=== PATIENT | female | born 1990 | race African-American/Black ===

== ENCOUNTER → 2018-07-17 | Outpatient (CLI) | payer OTHER ==
[~2018-07-17] MED LIST: Atarax10 MG PO; BIRTH CONTROL; BUPR100 PO; Bactrim Ds Tab1 EACH PO; CEPH500 PO; CITA20 PO; CLON.5 PO; CYCL10 PO; DESV50 PO; ESCI20 PO; KLONOPIN; LAMO100 PO; MULVITMINE PO; NAPR500 PO; NITR100CA PO; Naprosyn500 MG PO; OMEP20ER PO; OMEP40CA12 PO; ONDA4ODT MM; PARO10 PO; PHENA200 PO; PROBIOTIC1 EAC1 PO; Pepcid40 MG PO; Prednisone50 MG PO; Prilosec20 MG PO; SERT50 PO; SULTRIEL PO
[2018-07-17 12:07] LABS: U Amphetamine Screen Not Detected; U Barbituate Screen Not Detected; U Benzodiazapine Screen Not Detected; U Buprenorphine Screen Not Detected; U Cannabinoids Screen Not Detected; U Cocaine Screen Not Detected; U Methadone Screen Not Detected; U Methamphetamine Screen Not Detected; U Opiates Screen Not Detected; U Oxycodone Screen Not Detected; U Phencyclidine Screen Not Detected; U Propoxyphene Screen Not Detected
== END ==
LOC: LAB 10:16 → LAB SHORT 10:16
PROVIDERS: Nurse Practitioner Family
DX: Z51.81 Encounter for therapeutic drug level monitoring (principal); Z79.899 Other long term (current) drug therapy

== ENCOUNTER → 2019-04-17 | Outpatient (CLI) | payer OTHER ==
[2019-04-20 06:07] LABS: CHLAMYDIA TRACHOMATIS, NAA Negative (Negative); NEISSERIA GONORRHOEAE, NAA Negative (Negative)
== END ==
LOC: LAB SHORT 15:38 → LAB UCHC 15:38
PROVIDERS: Registered Nurse Community Health
DX: Z20.2 Contact with and (suspected) exposure to infections with a predominantly sexual mode of transmission (principal)
CPT/HCPCS: 87491; 87591

== ENCOUNTER → 2020-07-30 | Outpatient (CLI) | payer OTHER ==
[2020-08-03 21:10] LABS: HSV-1 DNA Negative (Negative); HSV-2 DNA Negative (Negative)
== END | disposition home or self-care (01) ==
LOC: LAB SHORT 15:00
PROVIDERS: Nurse Practitioner Family
DX: N94.10 Unspecified dyspareunia (principal); R30.0 Dysuria
CPT/HCPCS: 87070; 87077; 87086; 87186; 87205; 87529

== ENCOUNTER → 2020-08-18 | Outpatient (CLI) | payer OTHER ==
[2020-08-18 19:14] LABS: Appearance, Urine Clear (Clear); Bilirubin, Urine Neg (Neg); Blood, Urine 5+ (Neg); Color, Urine Yellow (P-Yellow); Glucose Qualitative, Urine Neg (Neg); Ketones, Urine 1+ (Neg); Leukocyte Esterase, Urine 2+ (Neg); Nitrite, Urine Pos (Neg); Protein, Urine 2+ (Neg); Urobilinogen, Urine NORM (Normal)
[2020-08-18 19:27] LABS: Bacteria Many /hpf; Red Blood Cells, Urine 50-100 /hpf (0-2); Squamous Epithelial Cells Few /hpf (Few); White Blood Cells, Urine 50-100 /hpf (0-5)
== END | disposition home or self-care (01) ==
LOC: LAB SHORT 17:52
PROVIDERS: Physician Assistant
DX: R30.0 Dysuria (principal)
CPT/HCPCS: 81001

== ENCOUNTER → 2020-11-19 | Outpatient (CLI) | payer OTHER ==
[2020-11-22 04:08] LABS: CHLAMYDIA TRACHOMATIS, NAA Negative (Negative)
[2020-11-23 14:09] LABS: HPV 16 Negative (Negative); HPV 18 Negative (Negative); HPV OTHER HR TYPES Negative (Negative)
== END | disposition home or self-care (01) ==
LOC: LAB 18:33 → LAB SHORT 18:33
PROVIDERS: Family Medicine
DX: Z12.4 Encounter for screening for malignant neoplasm of cervix (principal)
CPT/HCPCS: 87491; 87591; 87624; G0123

== ENCOUNTER → 2021-01-31 | Outpatient (CLI) | payer OTHER ==
[2021-01-31 13:55] LABS: Appearance, Urine Clear (Clear); Bilirubin, Urine Neg (Neg); Blood, Urine Neg (Neg); Color, Urine Yellow (P-Yellow); Glucose Qualitative, Urine Neg (Neg); Ketones, Urine Neg (Neg); Leukocyte Esterase, Urine Neg (Neg); Nitrite, Urine Neg (Neg); Protein, Urine Neg (Neg); Specific Gravity, Urine 1.025 (1.003-1.022); Urobilinogen, Urine NORM (Normal)
== END | disposition home or self-care (01) ==
LOC: LAB SHORT 11:10 → LAB 11:10
PROVIDERS: Family Medicine
DX: N39.0 Urinary tract infection, site not specified (principal)
CPT/HCPCS: 81003; 87086

== ENCOUNTER → 2021-02-04 | Outpatient (CLI) | payer OTHER | END | disposition home or self-care (01) | LOC: LAB SHORT 18:11 → LAB 18:11 | DX: R10.9 Unspecified abdominal pain (principal) | CPT/HCPCS: 87086 ==

== ENCOUNTER 2021-08-27 17:20 | Emergency (ER) | payer OTHER ==
[~2021-08-27] VITALS: Ht 175.3 cm; Wt 74.8 kg
[2021-08-27 17:54] LABS: BASOPHILS ABSOLUTE AUTO 0.02 K/mm3 (0.00-0.23); BASOPHILS PERCENT AUTO 0 % (0-2); EOSINOPHILS ABSOLUTE AUTO 0.02 K/mm3 (0.00-0.68); EOSINOPHILS PERCENT AUTO 0 % (0-6); Hematocrit 41.5 % (33.0-51.0); Hemoglobin 13.8 g/dL (11.5-16.0); IMMATURE GRAN ABSOLUTE AUTO 0.02 K/mm3 (0.00-0.10); IMMATURE GRAN PERCENT AUTO 0 % (0-1); LYMPHOCYTES ABSOLUTE AUTO 2.57 K/mm3 (0.84-5.20); LYMPHOCYTES PERCENT AUTO 38 % (21-46); MONOCYTES ABSOLUTE AUTO 0.52 K/mm3 (0.16-1.47); MONOCYTES PERCENT AUTO 8 % (4-13); Mean Corpuscular HGB 29.3 pg (26.0-34.0); Mean Corpuscular HGB Conc 33.3 g/dL (31.5-36.5); Mean Corpuscular Volume 88 fL (80-100); Mean Platelet Volume 9.3 fL (9.1-12.4); NEUTROPHILS ABSOLUTE AUTO 3.63 K/mm3 (1.96-9.15); NEUTROPHILS PERCENT AUTO 54 % (41-73); Platelet Count 232 K/mm3 (150-400); RDW Coefficient Variation 11.6 % (11.7-14.2); RDW Standard Deviation 37.6 fL (35.1-46.3); Red Blood Cell Count 4.71 M/mm3 (3.80-5.20); White Blood Cell Count 6.78 K/mm3 (4.00-11.30)
[2021-08-27 18:10] LABS: Alanine Aminotransfer (ALT/SGP 30 U/L (12-78); Albumin, Blood 3.8 g/dL (3.4-5.0); Albumin/Globulin Ratio 0.9 (0.8-1.8); Alk Phos 61 U/L (50-136); Anion Gap 9 mmol/L (6-16); Aspartate Aminotrans (AST/SGOT 23 U/L (12-37); Bilirubin, Total 0.2 mg/dL (0.1-1.0); Blood Urea Nitrogen 14 mg/dL (8-24); Bun/Creatinine Ratio 19.3 (12.0-20.0); CO2, Blood 26 mmol/L (21-32); Calcium, Blood 9.4 mg/dL (8.5-10.1); Chloride, Blood 102 mmol/L (98-108); Creatinine, Blood 0.73 mg/dL (0.40-1.00); Globulin, Blood 4.1 g/dL (2.2-4.0); Glomerular Filtration Rate >60 (60-); Glucose, Blood 86 mg/dL (70-99); Potassium, Blood 3.4 mmol/L (3.5-5.5); Sodium, Blood 137 mmol/L (136-145); Total Protein, Blood 7.9 g/dL (6.4-8.2)
== END 2021-08-27 20:55 | disposition home or self-care (01) ==
LOC: ER 17:20
PROVIDERS: Physician Assistant
DX: R07.9 Chest pain, unspecified (principal); F17.200 Nicotine dependence, unspecified, uncomplicated; J45.909 Unspecified asthma, uncomplicated; Z79.52 Long term (current) use of systemic steroids
CPT/HCPCS: 36415; 71045; 80053; 81025; 83690; 84484; 85025; 93005; 93010; 96374; 99284-25; J1885

== ENCOUNTER → 2021-12-23 | Outpatient (CLI) | payer OTHER ==
[2021-12-24 13:46] LABS: Candida species (DNA Probe) Negative (NEGATIVE); G. vaginalis (DNA Probe) Negative (NEGATIVE); T. vaginalis (DNA Probe) Negative (NEGATIVE)
== END | disposition home or self-care (01) ==
LOC: LAB SHORT 17:42 → LAB 17:42
PROVIDERS: Family Medicine
DX: N89.8 Other specified noninflammatory disorders of vagina (principal)
CPT/HCPCS: 87480; 87510; 87660

== ENCOUNTER → 2022-08-14 | Outpatient (CLI) | payer OTHER ==
[2022-08-14 19:33] LABS: BASOPHILS ABSOLUTE AUTO 0.02 K/mm3 (0.00-0.23); BASOPHILS PERCENT AUTO 0 % (0-2); EOSINOPHILS ABSOLUTE AUTO 0.06 K/mm3 (0.00-0.68); EOSINOPHILS PERCENT AUTO 1 % (0-6); Hematocrit 40.6 % (33.0-51.0); Hemoglobin 13.3 g/dL (11.5-16.0); IMMATURE GRAN ABSOLUTE AUTO 0.01 K/mm3 (0.00-0.10); IMMATURE GRAN PERCENT AUTO 0 % (0-1); LYMPHOCYTES ABSOLUTE AUTO 2.15 K/mm3 (0.84-5.20); LYMPHOCYTES PERCENT AUTO 40 % (21-46); MONOCYTES ABSOLUTE AUTO 0.41 K/mm3 (0.16-1.47); MONOCYTES PERCENT AUTO 8 % (4-13); Mean Corpuscular HGB 28.9 pg (26.0-34.0); Mean Corpuscular HGB Conc 32.8 g/dL (31.5-36.5); Mean Corpuscular Volume 88 fL (80-100); Mean Platelet Volume 9.7 fL (9.1-12.4); NEUTROPHILS ABSOLUTE AUTO 2.76 K/mm3 (1.96-9.15); NEUTROPHILS PERCENT AUTO 51 % (41-73); Platelet Count 279 K/mm3 (150-400); RDW Standard Deviation 38.5 fL (35.1-46.3); White Blood Cell Count 5.41 K/mm3 (4.00-11.30)
[2022-08-14 20:13] LABS: Albumin, Blood 3.4 g/dL (3.4-5.0); Albumin/Globulin Ratio 0.8 (0.8-1.8); Bilirubin, Total 0.1 mg/dL (0.1-1.0); Bun/Creatinine Ratio 13.9 (12.0-20.0); Calcium, Blood 9.5 mg/dL (8.5-10.1); Creatinine, Blood 0.79 mg/dL (0.40-1.00); Globulin, Blood 4.3 g/dL (2.2-4.0); Potassium, Blood 3.7 mmol/L (3.5-5.5); Thyroid Stimulating Hormone 1.35 uIU/mL (0.360-4.800); Total Protein, Blood 7.7 g/dL (6.4-8.2)
== END | disposition home or self-care (01) ==
LOC: LAB 18:45 → LAB SHORT 18:45
PROVIDERS: Nurse Practitioner Family
DX: Z13.29 Encounter for screening for other suspected endocrine disorder (principal); E87.6 Hypokalemia; N23 Unspecified renal colic; J02.9 Acute pharyngitis, unspecified
CPT/HCPCS: 80053; 84443; 85025; 87081; 87086

== ENCOUNTER → 2022-12-08 | Outpatient (CLI) | payer OTHER ==
[2022-12-11 13:08] LABS: CHLAMYDIA BY NAA Negative (Negative); GONOCOCCUS BY NAA Negative (Negative); TRICH VAG BY NAA Negative (Negative)
== END ==
LOC: LAB SHORT 15:21 → LAB 15:21
PROVIDERS: Family Medicine
DX: Z11.3 Encounter for screening for infections with a predominantly sexual mode of transmission (principal)
CPT/HCPCS: 87491; 87591; 87661

== ENCOUNTER → 2023-03-22 | Outpatient (CLI) | payer OTHER | END | disposition home or self-care (01) | LOC: LAB 14:19 → LAB SHORT 14:19 | DX: R21 Rash and other nonspecific skin eruption (principal) | CPT/HCPCS: 87070; 87205 ==

== ENCOUNTER → 2023-04-29 | Outpatient (CLI) | payer OTHER ==
[2023-04-30 11:05] LABS: Candida species (DNA Probe) Positive (NEGATIVE); G. vaginalis (DNA Probe) Negative (NEGATIVE); T. vaginalis (DNA Probe) Negative (NEGATIVE)
== END | disposition home or self-care (01) ==
LOC: LAB SHORT 14:24 → LAB 14:24
PROVIDERS: Physician Assistant Medical
DX: N89.8 Other specified noninflammatory disorders of vagina (principal)
CPT/HCPCS: 87480; 87510; 87660

== ENCOUNTER → 2023-05-26 | Outpatient (CLI) | payer OTHER | END | disposition home or self-care (01) | LOC: LAB SHORT 17:13 → LAB 17:13 | DX: L30.9 Dermatitis, unspecified (principal) | CPT/HCPCS: 87070; 87077; 87147; 87186; 87205 ==

== ENCOUNTER → 2023-06-18 | Outpatient (CLI) | payer OTHER ==
[2023-06-18 17:33] LABS: BASOPHILS ABSOLUTE AUTO 0.02 K/mm3 (0.00-0.23); BASOPHILS PERCENT AUTO 0 % (0-2); EOSINOPHILS ABSOLUTE AUTO 0.06 K/mm3 (0.00-0.68); EOSINOPHILS PERCENT AUTO 1 % (0-6); Hematocrit 41.5 % (33.0-51.0); Hemoglobin 13.8 g/dL (11.5-16.0); IMMATURE GRAN ABSOLUTE AUTO 0.01 K/mm3 (0.00-0.10); IMMATURE GRAN PERCENT AUTO 0 % (0-1); LYMPHOCYTES ABSOLUTE AUTO 2.58 K/mm3 (0.84-5.20); LYMPHOCYTES PERCENT AUTO 48 % (21-46); MONOCYTES ABSOLUTE AUTO 0.37 K/mm3 (0.16-1.47); MONOCYTES PERCENT AUTO 7 % (4-13); Mean Corpuscular HGB 29.6 pg (26.0-34.0); Mean Corpuscular HGB Conc 33.3 g/dL (31.5-36.5); Mean Corpuscular Volume 89 fL (80-100); Mean Platelet Volume 9.3 fL (9.1-12.4); NEUTROPHILS ABSOLUTE AUTO 2.35 K/mm3 (1.96-9.15); NEUTROPHILS PERCENT AUTO 44 % (41-73); Platelet Count 262 K/mm3 (150-400); RDW Coefficient Variation 12.5 % (11.7-14.2); RDW Standard Deviation 40.4 fL (35.1-46.3); Red Blood Cell Count 4.66 M/mm3 (3.80-5.20); White Blood Cell Count 5.39 K/mm3 (4.00-11.30)
== END ==
LOC: LAB SHORT 17:29
PROVIDERS: Physician Assistant Medical
DX: L20.9 Atopic dermatitis, unspecified (principal)
CPT/HCPCS: 85025

== ENCOUNTER → 2023-12-05 | Outpatient (CLI) | payer OTHER | LOC: LAB SHORT 14:41 → LAB 14:41 | DX: Z32.02 Encounter for pregnancy test, result negative (principal) | CPT/HCPCS: 84702 ==

== ENCOUNTER 2024-02-29 12:57 | Emergency (ER) | payer OTHER ==
[~2024-02-29] VITALS: Ht 175.3 cm; Wt 74.8 kg
[2024-02-29 13:57] LABS: BASOPHILS ABSOLUTE AUTO 0.03 K/mm3 (0.00-0.23); BASOPHILS PERCENT AUTO 1 % (0-2); EOSINOPHILS ABSOLUTE AUTO 0.08 K/mm3 (0.00-0.68); EOSINOPHILS PERCENT AUTO 1 % (0-6); Hematocrit 43.3 % (33.0-51.0); Hemoglobin 14.6 g/dL (11.5-16.0); IMMATURE GRAN ABSOLUTE AUTO 0.03 K/mm3 (0.00-0.10); IMMATURE GRAN PERCENT AUTO 1 % (0-1); LYMPHOCYTES ABSOLUTE AUTO 1.97 K/mm3 (0.84-5.20); LYMPHOCYTES PERCENT AUTO 32 % (21-46); MONOCYTES ABSOLUTE AUTO 0.47 K/mm3 (0.16-1.47); MONOCYTES PERCENT AUTO 8 % (4-13); Mean Corpuscular HGB 29.9 pg (26.0-34.0); Mean Corpuscular HGB Conc 33.7 g/dL (31.5-36.5); Mean Corpuscular Volume 89 fL (80-100); NEUTROPHILS ABSOLUTE AUTO 3.58 K/mm3 (1.96-9.15); NEUTROPHILS PERCENT AUTO 58 % (41-73); Platelet Count 285 K/mm3 (150-400); RDW Standard Deviation 38.5 fL (35.1-46.3); Red Blood Cell Count 4.89 M/mm3 (3.80-5.20); White Blood Cell Count 6.16 K/mm3 (4.00-11.30)
[2024-02-29 14:01] LABS: Source, Urine Clean Catch
[2024-02-29 14:19] LABS: Albumin, Blood 3.6 g/dL (3.4-5.0); Albumin/Globulin Ratio 0.9 (0.8-1.8); Bilirubin, Total 0.2 mg/dL (0.1-1.0); Bun/Creatinine Ratio 25.2 (12.0-20.0); Calcium, Blood 9.8 mg/dL (8.5-10.1); Creatinine, Blood 0.71 mg/dL (0.40-1.00); Globulin, Blood 4.1 g/dL (2.2-4.0); Potassium, Blood 4.2 mmol/L (3.5-5.5); Total Protein, Blood 7.7 g/dL (6.4-8.2)
[2024-02-29 14:24] LABS: Appearance, Urine Hazy (Clear); Bilirubin, Urine Neg (Neg); Blood, Urine Neg (Neg); Color, Urine Yellow (P-Yellow); Glucose Qualitative, Urine Neg (Neg); Ketones, Urine Neg (Neg); Leukocyte Esterase, Urine Neg (Neg); Nitrite, Urine Neg (Neg); Protein, Urine 1+ (Neg); Specific Gravity, Urine 1.015 (1.003-1.022); Urobilinogen, Urine NORM (Normal)
[2024-02-29 16:59] LABS: Bacteria Few /hpf; Red Blood Cells, Urine 0-2 /hpf (0-2); Squamous Epithelial Cells Few /hpf (Few); White Blood Cells, Urine 0-2 /hpf (0-5)
[2024-02-29 18:40] VITALS: BP 148/97
[2024-02-29] MEDS ORDERED: Lidocaine 2% Viscous Soln 15 ML UDC PO ONE (19:25)
[2024-02-29] MEDS ORDERED: Atropine/Scopalam/Hyoscam/PB 5 ML UDC PO ONE (19:25)
[2024-02-29] MEDS ORDERED: Mag Hydrox/AL Hydrox/Simeth 30 ML UDC PO ONE (19:25)
[2024-02-29] MEDS ORDERED: Ketorolac Tromethamine 30mg Vial IV ONE (19:25)
[2024-02-29] MEDS ORDERED: FAMO20 PO (20:54)
== END 2024-02-29 21:30 | disposition home or self-care (01) ==
LOC: ER 12:57
PROVIDERS: Physician Assistant
DX: N28.1 Cyst of kidney, acquired (principal); Z88.2 Allergy status to sulfonamides; Z88.1 Allergy status to other antibiotic agents; Z79.899 Other long term (current) drug therapy; Z79.52 Long term (current) use of systemic steroids; F17.210 Nicotine dependence, cigarettes, uncomplicated
CPT/HCPCS: 74177; 80053; 81001; 83690; 84703; 85025; 96374; 99284-25; A9270; J1885; Q9967

== ENCOUNTER 2024-05-01 12:24 | Day surgery (SDC) | payer OTHER ==
[~2024-05-01] VITALS: Ht 175.3 cm; Wt 76.1 kg
[~2024-05-01 12:24] MED LIST changes: +FAMO20 PO; +Lactated Ringer's 1,000 ML IV ONE; +Lactated Ringer's 1,000 ML ONE; +propofoL 50 ML IV ONE
[2024-05-01] MEDS ORDERED: Lactated Ringer's 1,000 ML IV ONE (12:55)
[2024-05-01] MEDS ORDERED: ALPR.5 PO (13:22)
[2024-05-01] MEDS ORDERED: BRINTELLIX20 MG PO (13:22)
[2024-05-01 14:45] VITALS: BP 110/70
--- NOTE | 2024-05-01 16:16 | NUR ---
05/01/24 1616 Tanner Mcdaniel PT CALLED FOLLOWING D/C AND RPORTED CP, PAIN OVER LEFT SHOULDER, AND FEELING OF INCREASED HEART RATE. DR. PHILIP WAS CONSULTED, AND PT WAS INSTRUCTED TO GO TO EMERGENCY DEPARTMENT IMMEDIATELY, PER DR. PHILIP'S ORDERS.
== END 2024-05-01 14:44 | disposition home or self-care (01) ==
LOC: ORSCSDS 12:24
PROVIDERS: Internal Medicine Gastroenterology
PROC: 0DBE8ZX Excision of Large Intestine, Via Natural or Artificial Opening Endoscopic, Diagnostic (ICD-10-PCS; principal; 2024-05-01 13:45)
PROC: 0DJ08ZZ Inspection of Upper Intestinal Tract, Via Natural or Artificial Opening Endoscopic (ICD-10-PCS; principal; 2024-05-01 13:45)
DX: R19.7 Diarrhea, unspecified (principal); R10.84 Generalized abdominal pain; R14.0 Abdominal distension (gaseous); F40.01 Agoraphobia with panic disorder; F32.A Depression, unspecified; Z79.899 Other long term (current) drug therapy; Z87.891 Personal history of nicotine dependence
CPT/HCPCS: 88305; J2704; J7120

== ENCOUNTER → 2024-07-03 | Outpatient (CLI) | payer OTHER ==
[~2024-07-03] MED LIST changes: +ALPR.5 PO; +BRINTELLIX20 MG PO; -Lactated Ringer's 1,000 ML IV ONE; -Lactated Ringer's 1,000 ML ONE; -propofoL 50 ML IV ONE
[2024-07-03 21:02] LABS: Parainfluenza Virus 2 Detected (NOT DETECT)
[2024-07-03 21:03] LABS: Adenovirus Not Detected (NOT DETECT); Bordetella pertussis Not Detected (NOT DETECT); Chlamydophila pneumoniae Not Detected (NOT DETECT); Coronavirus 229E Not Detected (NOT DETECT); Coronavirus HKU1 Not Detected (NOT DETECT); Coronavirus NL63 Not Detected (NOT DETECT); Coronavirus OC43 Not Detected (NOT DETECT); Human Metapneumovirus Not Detected (NOT DETECT); Human Rhinovirus/Enterovirus Not Detected (NOT DETECT); Influenza A/2009-H1 Not Detected (NOT DETECT); Influenza A/H1 Not Detected (NOT DETECT); Influenza A/H3 Not Detected (NOT DETECT); Influenza B Not Detected (NOT DETECT); Mycoplasma pneumoniae Not Detected (NOT DETECT); Parainfluenza Virus 1 Not Detected (NOT DETECT); Parainfluenza Virus 3 Not Detected (NOT DETECT); Parainfluenza Virus 4 Not Detected (NOT DETECT); Respiratory Syncytial Virus Not Detected (NOT DETECT); SARS-Cov-2 (COVID-19), BioFire Not Detected (NOT DETECT)
== END ==
LOC: LAB SHORT 18:36 → LAB 18:36
PROVIDERS: Student in an Organized Health Care Education/Training Program
DX: J02.9 Acute pharyngitis, unspecified (principal); J06.9 Acute upper respiratory infection, unspecified
CPT/HCPCS: 0202U; 87081

== ENCOUNTER 2025-03-02 19:33 | Emergency (ER) | payer OTHER ==
[~2025-03-02] VITALS: Ht 175.3 cm; Wt 81.7 kg
[2025-03-02 21:30] VITALS: BP 144/95
== END 2025-03-02 21:52 | disposition home or self-care (01) ==
LOC: ER 19:33
DX: R53.1 Weakness (principal); F17.210 Nicotine dependence, cigarettes, uncomplicated; Z88.2 Allergy status to sulfonamides; Z88.1 Allergy status to other antibiotic agents; Z79.899 Other long term (current) drug therapy
CPT/HCPCS: 51798; 70450; 99284-25

== ENCOUNTER 2025-03-06 06:07 | Day surgery (SDC) | payer OTHER ==
[~2025-03-06] VITALS: Ht 175.3 cm; Wt 83.4 kg
[2025-03-06] MEDS ORDERED: Bupivacaine 0.5% W/EPI 1:200000 SDV 30 ML Vial ONE (06:54)
--- NOTE | 2025-03-06 07:08 | NUR ---
03/06/25 0742 MICAELA Cárdenas CHECK ON RT HAND @ 0352
[2025-03-06] MEDS ORDERED: FentaNYL Citrate 50 MCG/ML 2 ML Injection ONE ×2 (07:24→08:50)
[2025-03-06] MEDS ORDERED: Rocuronium Bromide 10 MG/ML 5ML Injection IV ONE (07:37)
[2025-03-06] MEDS ORDERED: Dexamethasone Sod Phos 10 MG/ML 1ML VIAL ONE (07:37)
[2025-03-06] MEDS ORDERED: Sugammadex Sodium 200 MG/2ML SDV (100 MG/ML) ONE (08:13)
[2025-03-06] MEDS ORDERED: Ondansetron HCl 2 MG / ML 2ML Vial ONE (08:13)
--- NOTE | 2025-03-06 08:18 | NUR ---
03/06/25 [address] LOT: [id number] exp:06/2029
--- NOTE | 2025-03-06 09:16 | NUR ---
03/06/25 0916 Rocio Yeung RN ASSISTED PT TO RECLINER. VSS.
[2025-03-06] MEDS ORDERED: Ketorolac Tromethamine 30mg Vial ONE (09:17)
[2025-03-06 09:55] VITALS: BP 128/80
== END 2025-03-06 10:18 | disposition home or self-care (01) ==
LOC: ORSCSDS 06:07
PROVIDERS: Obstetrics & Gynecology
PROC: 0UDB7ZX Extraction of Endometrium, Via Natural or Artificial Opening, Diagnostic (ICD-10-PCS; principal; 2025-03-06 07:30)
PROC: 0UJH4ZZ Inspection of Vagina and Cul-de-sac, Percutaneous Endoscopic Approach (ICD-10-PCS; principal; 2025-03-06 07:30)
PROC: 0UH97HZ Insertion of Contraceptive Device into Uterus, Via Natural or Artificial Opening (ICD-10-PCS; principal; 2025-03-06 07:30)
DX: N94.6 Dysmenorrhea, unspecified (principal); N93.9 Abnormal uterine and vaginal bleeding, unspecified; Z30.430 Encounter for insertion of intrauterine contraceptive device; J45.909 Unspecified asthma, uncomplicated; Q05.9 Spina bifida, unspecified; Z79.899 Other long term (current) drug therapy
CPT/HCPCS: 88305; A9270; J1100; J1885; J2405; J2704; J3010; J7120; J7297

== ENCOUNTER → 2025-03-13 | Outpatient (CLI) | payer OTHER ==
[2025-03-13 14:11] LABS: Source, Urine Voided
[2025-03-13 14:35] LABS: Bilirubin, Urine Neg (Neg); Color, Urine Yellow (P-Yellow); Glucose Qualitative, Urine Neg (Neg); Ketones, Urine Neg (Neg); Leukocyte Esterase, Urine 1+ (Neg); Protein, Urine Neg (Neg); Specific Gravity, Urine 1.015 (1.003-1.022); Urobilinogen, Urine NORM (Normal)
[2025-03-13 15:30] LABS: Bacterial Vaginosis PCR Negative (NEGATIVE); Candida Group, PCR NOT DETECTED (NOT DETECT); Candida glabrata-krusei, PCR NOT DETECTED (NOT DETECT)
[2025-03-13 16:03] LABS: Chlamydia Trachomatis Vaginal NOT DETECTED (NOT DETECT); Neisseria Gonorrhoea Vaginal NOT DETECTED (NOT DETECT)
== END ==
LOC: LAB 12:40 → LAB SHORT 12:40
PROVIDERS: Obstetrics & Gynecology
DX: N73.9 Female pelvic inflammatory disease, unspecified (principal); N89.8 Other specified noninflammatory disorders of vagina; R30.0 Dysuria
CPT/HCPCS: 81001; 81515; 87086; 87491; 87591

== ENCOUNTER 2025-03-26 09:38 | Emergency (ER) | payer OTHER ==
[~2025-03-26] VITALS: Ht 175.3 cm; Wt 81.7 kg
[2025-03-26] MEDS ORDERED: Ondansetron HCl 2 MG / ML 2ML Vial IV ONE ×2 (10:30→12:35)
[2025-03-26 11:08] LABS: Source, Urine Clean Catch
[2025-03-26 11:19] LABS: BASOPHILS ABSOLUTE AUTO 0.01 K/mm3 (0.00-0.23); BASOPHILS PERCENT AUTO 0 % (0-2); EOSINOPHILS ABSOLUTE AUTO 0.06 K/mm3 (0.00-0.68); EOSINOPHILS PERCENT AUTO 1 % (0-6); Hematocrit 39.2 % (33.0-51.0); Hemoglobin 12.6 g/dL (11.5-16.0); IMMATURE GRAN ABSOLUTE AUTO 0.02 K/mm3 (0.00-0.10); IMMATURE GRAN PERCENT AUTO 0 % (0-1); LYMPHOCYTES ABSOLUTE AUTO 1.62 K/mm3 (0.84-5.20); LYMPHOCYTES PERCENT AUTO 32 % (21-46); MONOCYTES ABSOLUTE AUTO 0.52 K/mm3 (0.16-1.47); MONOCYTES PERCENT AUTO 10 % (4-13); Mean Corpuscular HGB Conc 32.1 g/dL (31.5-36.5); Mean Corpuscular Volume 91 fL (80-100); NEUTROPHILS ABSOLUTE AUTO 2.78 K/mm3 (1.96-9.15); NEUTROPHILS PERCENT AUTO 56 % (41-73); NRBC ABSOLUTE 0.00 K/mm3 (0.00-0.02); NRBC Auto 0.0 /100 WBC (0.0-0.2); Platelet Count 262 K/mm3 (150-400); RDW Coefficient Variation 12.3 % (11.7-14.2); RDW Standard Deviation 40.6 fL (35.1-46.3)
[2025-03-26 11:20] LABS: Bilirubin, Urine Neg (Neg); Color, Urine Yellow (P-Yellow); Glucose Qualitative, Urine Neg (Neg); Ketones, Urine Neg (Neg); Leukocyte Esterase, Urine 1+ (Neg); Protein, Urine 2+ (Neg); Specific Gravity, Urine 1.025 (1.003-1.022); Urobilinogen, Urine NORM (Normal)
[2025-03-26 11:30] LABS: Red Blood Cells, Urine Not Seen /hpf (0-2)
[2025-03-26 11:43] LABS: Alanine Aminotransfer (ALT/SGP 63.0 U/L (12-78); Albumin, Blood 3.8 g/dL (3.4-5.0); Albumin/Globulin Ratio 1.2 (0.8-1.8); Anion Gap 6.0 mmol/L (3-11); Aspartate Aminotrans (AST/SGOT 44.0 U/L (12-37); Bilirubin, Total 0.1 mg/dL (0.1-1.0); Blood Urea Nitrogen 10.0 mg/dL (8-24); CO2, Blood 27.0 mmol/L (21-32); Calcium, Blood 8.7 mg/dL (8.5-10.1); Chloride, Blood 109.0 mmol/L (98-108); Creatinine, Blood 0.79 mg/dL (0.40-1.00); Globulin, Blood 3.1 g/dL (2.2-4.0); Glucose, Blood 75.0 mg/dL (70-99); Potassium, Blood 3.6 mmol/L (3.5-5.5); Sodium, Blood 138.0 mmol/L (136-145); Total Protein, Blood 6.9 g/dL (6.4-8.2)
[2025-03-26] MEDS ORDERED: NS 1,000 ML IV SCH (12:35)
[2025-03-26] MEDS ORDERED: FentaNYL Citrate 50 MCG/ML 2 ML Injection IV ONE (12:35)
[2025-03-26] MEDS ORDERED: DiphenhydrAMINE HCl 50 MG/ML 1ML Vial IV ONE (12:35)
[2025-03-26] MEDS ORDERED: CEPH500 PO (15:00)
[2025-03-26] MEDS ORDERED: Ketorolac Tromethamine 15mg Vial IV ONE (15:40)
[2025-03-26] MEDS ORDERED: ACET500 PO (15:55)
[2025-03-26 16:17] VITALS: BP 129/90
[2025-03-26 17:16] LABS: Bacterial Vaginosis PCR Negative (NEGATIVE); Candida Group, PCR NOT DETECTED (NOT DETECT); Candida glabrata-krusei, PCR NOT DETECTED (NOT DETECT)
[2025-03-26 17:48] LABS: Chlamydia Trachomatis Cervix NOT DETECTED (NOT DETECT); Neisseria Gonorrhoea Cervix NOT DETECTED (NOT DETECT)
== END 2025-03-26 16:31 | disposition home or self-care (01) ==
LOC: ER 09:38
PROVIDERS: Physician Assistant; Student in an Organized Health Care Education/Training Program
DX: R10.11 Right upper quadrant pain (principal); R10.12 Left upper quadrant pain; R10.20 Pelvic and perineal pain unspecified side; Z88.2 Allergy status to sulfonamides; Z91.018 Allergy to other foods; Z88.8 Allergy status to other drugs, medicaments and biological substances; F17.210 Nicotine dependence, cigarettes, uncomplicated
CPT/HCPCS: 74177; 80053; 81001; 81025; 81515; 83690; 85025; 87077; 87086; 87186; 87491; 87591; 96374-59; 96375; 96376; 99284-25; A9270; J1200; J1885; J2405; J2919; J3010; J7030; Q9967

== ENCOUNTER 2025-03-31 13:16 | Inpatient (IN) | payer OTHER ==
[~2025-03-31] VITALS: Ht 175.3 cm; Wt 81.5 kg
[~2025-03-31 13:16] MED LIST changes: +ACET500 PO
[2025-03-31 13:28] VITALS: BP 131/94
[2025-03-31] MEDS ORDERED: OMEP20ER PO (14:00)
[2025-03-31] MEDS ORDERED: FEROSUL325 M1 PO (14:02)
[2025-03-31] MEDS ORDERED: MULVITA PO (14:03)
[2025-03-31] MEDS ORDERED: Vitamin D1000 UNI1 PO (14:04)
[2025-03-31] MEDS ORDERED: MAGNESIUM OXID500 MG PO (14:04)
[2025-03-31] MEDS ORDERED: FLU VACC TS2025-26(6MOS UP)/PF 45 MCG/0.5 ML SYRINGE IM SCH (14:55)
[2025-03-31] MEDS ORDERED: Morphine Sulfate 4 MG/1 ML Injection IV PRN (14:55)
[2025-03-31] MEDS ORDERED: Ondansetron HCl 2 MG / ML 2ML Vial IV PRN (14:55)
[2025-03-31 15:24] LABS: BASOPHILS ABSOLUTE AUTO 0.01 K/mm3 (0.00-0.23); BASOPHILS PERCENT AUTO 0 % (0-2); EOSINOPHILS ABSOLUTE AUTO 0.09 K/mm3 (0.00-0.68); EOSINOPHILS PERCENT AUTO 2 % (0-6); Hematocrit 41.0 % (33.0-51.0); Hemoglobin 13.3 g/dL (11.5-16.0); IMMATURE GRAN ABSOLUTE AUTO 0.02 K/mm3 (0.00-0.10); IMMATURE GRAN PERCENT AUTO 0 % (0-1); LYMPHOCYTES ABSOLUTE AUTO 2.10 K/mm3 (0.84-5.20); LYMPHOCYTES PERCENT AUTO 37 % (21-46); MONOCYTES ABSOLUTE AUTO 0.43 K/mm3 (0.16-1.47); MONOCYTES PERCENT AUTO 8 % (4-13); Mean Corpuscular HGB Conc 32.4 g/dL (31.5-36.5); Mean Corpuscular Volume 90 fL (80-100); NEUTROPHILS ABSOLUTE AUTO 3.03 K/mm3 (1.96-9.15); NEUTROPHILS PERCENT AUTO 53 % (41-73); NRBC ABSOLUTE 0.00 K/mm3 (0.00-0.02); NRBC Auto 0.0 /100 WBC (0.0-0.2); Platelet Count 280 K/mm3 (150-400); RDW Coefficient Variation 12.6 % (11.7-14.2); RDW Standard Deviation 41.0 fL (35.1-46.3)
[2025-03-31 15:34] VITALS: BP 119/91
[2025-03-31 15:48] LABS: Alanine Aminotransfer (ALT/SGP 81.0 U/L (12-78); Albumin, Blood 3.7 g/dL (3.4-5.0); Albumin/Globulin Ratio 1.1 (0.8-1.8); Anion Gap 6.0 mmol/L (3-11); Aspartate Aminotrans (AST/SGOT 36.0 U/L (12-37); Bilirubin, Total 0.1 mg/dL (0.1-1.0); Blood Urea Nitrogen 13.0 mg/dL (8-24); CO2, Blood 29.0 mmol/L (21-32); Calcium, Blood 9.2 mg/dL (8.5-10.1); Chloride, Blood 105.0 mmol/L (98-108); Creatinine, Blood 0.7 mg/dL (0.40-1.00); Globulin, Blood 3.4 g/dL (2.2-4.0); Glucose, Blood 109.0 mg/dL (70-99); Potassium, Blood 4.5 mmol/L (3.5-5.5); Sodium, Blood 135.0 mmol/L (136-145); Total Protein, Blood 7.1 g/dL (6.4-8.2)
[2025-03-31 16:01] LABS: Source, Urine Clean Catch
[2025-03-31 16:17] LABS: Bilirubin, Urine Neg (Neg); Color, Urine Yellow (P-Yellow); Glucose Qualitative, Urine Neg (Neg); Ketones, Urine Neg (Neg); Leukocyte Esterase, Urine Neg (Neg); Protein, Urine Neg (Neg); Specific Gravity, Urine 1.010 (1.003-1.022); Urobilinogen, Urine NORM (Normal)
[2025-03-31] MEDS ORDERED: Vancomycin (Pharmacy Consult) IV SCH (17:15)
[2025-03-31] MEDS ORDERED: NS 250 ML IV PRN (18:05)
--- NOTE | 2025-03-31 19:14 | NUR ---
ADMIT NOTE DIRECT ADMIT FROM DR. CRUM'S OFFICE. HOSPITALIST DR. WEBBER WAS NOTIFIED OF ARRIVAL. ADMISSION PROCESS COMPLETED. MED REC COMPLETED. IV ACCES ESTABLISHED TO LEFT FOREARM. URINALYSIS COLLECTED. IV ANTIBIOTICS STARTED THIS EVENING. PRN IV MORPHINE 1 MG ADMINSITERED X1 AND ORAL OXY 5MG ADMINISTERED X1 WITH REPORTED RELIEF. PRN ZOFRAN ADMINISTERED FOR NAUSEA BUT NO VOMITING THIS SHIFT. PT REPORTS PAIN TO BACK/ABD/EPIGASTRIC AREA AND VAGINA. ALL CONSTANT SHARP SHOOTING PAIN. PT REPORTS OCCASIONAL ABNORMAL DISCHARGE FROM VAGINA BUT NONE NOTED AT THIS TIME. MONITORING URINARY OUTPUT. A/OX4. ROOM AIR. INDEPENDENT IN ROOM. STEADY GAIT. ABLE TO MAKE NEEDS KNOWN AND EDUCATED ON APPROPRIATE CALL KEE USAGE.
[2025-03-31 20:09] VITALS: BP 114/62
[2025-03-31] MEDS ORDERED: Camila0.35 MG PO (20:25)
--- NOTE | 2025-03-31 20:43 | NUR ---
NOTIFIED PROVIDER: PROVIDER CALLED ABOUT RESTARTING BENEDRYL, CONTROL AND TRINTELLIX. PROVIDER ORDERED ALL ABOVE MEDICATIONS BUT THE CONTROL. PROVIDER STATED TO HOLD CONTROL TONIGHT AND TO ASK MORNING PROVIDER ABOUT RESTARTING IT.
[2025-03-31] MEDS ORDERED: VORTIOXETINE HYDROBROMIDE 20 MG TABLET PO SCH (21:00)
--- NOTE | 2025-04-01 00:58 | NUR ---
PT REPORTS, WHEN SHE IS JUST ABOUT ASLEEP SHE IS WOKE BY A FEELING IN HER HEART. REPORTS IT FEELS LIKE HER HEART IS STOPPING. WHEN SHE DOES WAKE, HR FEELS TACHY FOR A SHORT MOMENT AND THEN RETURNS TO NORMAL. PT IS ON VANCO. CALLED PHARMACY, THIS IS NOT A COMMON ADVERSE REACTION TO VANCO. NO OTHER CONCERNING SYMPTOMS AT THIS TIME. CALL TO HOSPITALIST, WILL PLACE PT ON TELE FOR FURTHER MONITORING.
[2025-04-01 05:05] VITALS: BP 119/80
[2025-04-01 06:14] LABS: BASOPHILS ABSOLUTE AUTO 0.01 K/mm3 (0.00-0.23); BASOPHILS PERCENT AUTO 0 % (0-2); EOSINOPHILS ABSOLUTE AUTO 0.13 K/mm3 (0.00-0.68); EOSINOPHILS PERCENT AUTO 2 % (0-6); Hematocrit 39.6 % (33.0-51.0); Hemoglobin 12.8 g/dL (11.5-16.0); IMMATURE GRAN ABSOLUTE AUTO 0.02 K/mm3 (0.00-0.10); IMMATURE GRAN PERCENT AUTO 0 % (0-1); LYMPHOCYTES ABSOLUTE AUTO 2.55 K/mm3 (0.84-5.20); LYMPHOCYTES PERCENT AUTO 43 % (21-46); MONOCYTES ABSOLUTE AUTO 0.48 K/mm3 (0.16-1.47); MONOCYTES PERCENT AUTO 8 % (4-13); Mean Corpuscular HGB Conc 32.3 g/dL (31.5-36.5); Mean Corpuscular Volume 90 fL (80-100); NEUTROPHILS ABSOLUTE AUTO 2.73 K/mm3 (1.96-9.15); NEUTROPHILS PERCENT AUTO 46 % (41-73); NRBC ABSOLUTE 0.00 K/mm3 (0.00-0.02); NRBC Auto 0.0 /100 WBC (0.0-0.2); Platelet Count 259 K/mm3 (150-400); RDW Coefficient Variation 12.5 % (11.7-14.2); RDW Standard Deviation 41.2 fL (35.1-46.3)
[2025-04-01 06:43] LABS: Alanine Aminotransfer (ALT/SGP 65.0 U/L (12-78); Albumin, Blood 3.3 g/dL (3.4-5.0); Albumin/Globulin Ratio 1.0 (0.8-1.8); Anion Gap 6.0 mmol/L (3-11); Aspartate Aminotrans (AST/SGOT 35.0 U/L (12-37); Bilirubin, Total 0.4 mg/dL (0.1-1.0); Blood Urea Nitrogen 13.0 mg/dL (8-24); CO2, Blood 29.0 mmol/L (21-32); Calcium, Blood 8.7 mg/dL (8.5-10.1); Chloride, Blood 104.0 mmol/L (98-108); Creatinine, Blood 0.78 mg/dL (0.40-1.00); Globulin, Blood 3.3 g/dL (2.2-4.0); Glucose, Blood 88.0 mg/dL (70-99); Potassium, Blood 4.0 mmol/L (3.5-5.5); Sodium, Blood 135.0 mmol/L (136-145); Total Protein, Blood 6.6 g/dL (6.4-8.2)
[2025-04-01 07:55] VITALS: BP 119/75
[2025-04-01] MEDS ORDERED: Cholecalciferol 1000 Unit Tablet (=25MCG) PO SCH (09:00)
[2025-04-01] MEDS ORDERED: Multivitamins 1 Tab PO SCH (09:00)
[2025-04-01] MEDS ORDERED: Enoxaparin 40 MG/0.4 ML SYR SC SCH (09:00)
[2025-04-01 12:00] VITALS: BP 123/91
[2025-04-01] MEDS ORDERED: CefTRIAXone Sodium 1,000 MG in NS 100 ML IV SCH (14:00)
[2025-04-01 14:46] LABS: Source, Urine Clean Catch
[2025-04-01 14:52] LABS: Bilirubin, Urine Neg (Neg); Color, Urine Yellow (P-Yellow); Glucose Qualitative, Urine Neg (Neg); Ketones, Urine Neg (Neg); Leukocyte Esterase, Urine 1+ (Neg); Protein, Urine 1+ (Neg); Specific Gravity, Urine 1.025 (1.003-1.022); Urobilinogen, Urine NORM (Normal)
[2025-04-01 15:10] LABS: Red Blood Cells, Urine 0-2 /hpf (0-2); White Blood Cells, Urine 0-2 /hpf (0-5)
[2025-04-01 16:13] VITALS: BP 135/86
--- NOTE | 2025-04-01 18:00 | NUR ---
SHIFT SUMMARY PATIENT ALERT AND INTERACTIVE. PATIENT INDEPENDENT IN THE ROOM. PATIENT VERBALIZES DIZZINESS AND WEAKNESS AT TIMES. PATIENT NOTED TO HAVE SLIGHT "HEADBOBBING" WHILE SITTING AT BEDSIDE. PATIENT VERBALIZING A LOT OF ANXIETY RELATED TO ANTIBIOTICS AND DISCOMFORT WITH IV SITES. PROVIDED ACTIVE LISTENING AND SUPPORT TO PATIENT. NO DISCOMFORT REPORTED DURING INFUSIONS TODAY. [facility]A SENT FOR CULTURE. CONTINUE TO MEDICATE FOR PAIN. HEATING PAD PROVIDED FOR COMFORT.
[2025-04-01 19:37] VITALS: BP 127/83
[2025-04-01] MEDS ORDERED: Metoclopramide HCl 5MG / ML 2ML Vial IV PRN (21:20)
[2025-04-01 23:20] VITALS: BP 130/88
--- NOTE | 2025-04-02 03:14 | NUR ---
SHIFT SUMMARY PT IS ALERT AND ORIENTED. ABLE TO MAKE NEEDS KNOWN. PLEASANT AND COOPERATIVE WITH CARES. PT CONTINUES TO VERBALIZE FEELING "FUNNY" AT TIMES, MORE SO AFTER RECEIVING VANCOMYCIN IV. HOME CONTROL HAS BEEN RESTARTED. MEDICATION IS IN LOCKED CUPBOARD. MALE FRIEND AND SUPPORT DOG AT BEDSIDE ALL NIGHT. PT SEEMED LESS ANXIOUS WITH HER COMPANY. SHE DID RECEIVE 1 DOSE OF XANAX. LAC PIV PATENT AND FLUSHING WELL WITHOUT DISCOMFORT. MEDICATED FOR PAIN PER MAR. USING HEATING PAD INTERMITTENTLY. ON TELE, RUNNING SINUS SHYTHM, HR IN THE LOW 80'S. VSS. DIXIE IN LOWEST POSITION. CALL LIGHT IN REACH.
[2025-04-02 05:00] VITALS: BP 102/62
[2025-04-02 06:00] LABS: Vancomycin, Trough 13.4 ug/mL (5.0-10.0)
[2025-04-02 09:05] VITALS: BP 115/71
[2025-04-02 15:04] VITALS: BP 132/80
--- NOTE | 2025-04-02 18:26 | NUR ---
SHIFT SUMMARY PATIENT ALERT AND INTERACTIVE. PATIENT ANXIOUS AT TIMES. PATIENT TRANSITIONED TO DR GORDON TODAY BECAUSE OF SOME CONFUSION WITH PCP. PLAN TO CONTINUE ANTIBIOTICS UNTIL CULTURE RESULTS FROM [facility]. PATIENT INDEPENDENT IN ROOM AND AMBULATING IN HALLS. PATIENT CONTINUES TO BE EASILY ANXIOUS BUT COOPERATIVE WITH CARE.
[2025-04-02 19:44] VITALS: BP 134/73
[2025-04-02] MEDS ORDERED: Ondansetron 4 MG SoluTab MM PRN (21:15)
--- NOTE | 2025-04-02 21:19 | NUR ---
CALLED HOSPITALIST PATIENT REQUESTS PO DISSOLVEABLE ZOFRAN. PATIENT HAS ANXIETY ABOUT IV MEDS. NEW ORDER IN EMAR.
[2025-04-03 04:16] VITALS: BP 123/88
--- NOTE | 2025-04-03 04:27 | NUR ---
END OF SHIFT SUMMARY: AxOX4. ADMITTED FOR UTI. FULL CODE. REGULAR DIET. PATIENT IS ABLE TO MAKE NEEDS KNOWN. PATIENT CAN ADVOCATE FOR NEEDS. PATIENT IS INDEPENDENT IN THE ROOM. CONTINENT OF BOWEL AND BLADDER. TAKES MEDS WHOLE WITH FLUIDS. PATIENT HAD SOME PAIN AND NAUSEA TONIGHT AND WAS MEDICATED PER E-MAR. PATIENT GIVEN IV ANTIBIOTICS. PATIENT HAS ANXIETY. BED IN LOWEST POSITION. CALL LIGHT WITHIN REACH AND PATIENT HAS BEEN EDUCATED ON HOW TO USE. REPORT TO ONCOMING NURSE.
[2025-04-03 07:38] VITALS: BP 116/79
[2025-04-03 12:32] VITALS: BP 150/88
[2025-04-03 15:40] VITALS: BP 134/90
--- NOTE | 2025-04-03 17:53 | NUR ---
SHIFT SUMMARY PT A&OX4. PT ADMITTED DUE TO PYELONEPHRITIS, HX OF ANXIETY. PT INDEPENDENT IN ROOM, PT REPORTS NO SOB NO CHEST PAIN. PT REPORTS STOMACH/BACK PAIN, PAIN MANAGED PER EMAR. PT REPORTS NAUSEA. SCOPOLOMINE PATCH ORDERED AND PLACED BEHIND R EAR. PT TODAY REPORTED L FA IV WAS TENDER, PT REQUESTED NEW IV. FANI LARA RN GOT IV IN, DR. GORDON ORDERED ATARAX PRIOR TO IV PLACEMENT, DUE TO "PT ANXIETY TORWARDS IV'S." PT VSS. PT GETTING IV ANTIBIOTICS. PHARMACY UPDATED ON ANTIBIOIC ADMINISTRATION, PHARMACY RETIMED VANCO DUE TO PT NOT GETTING AM DOSE. PT VSS. PT IN BED, BED IN LOWEST POSITION, LOCKED, CALL LIGHT IN REACH.
[2025-04-03 19:27] VITALS: BP 131/86
[2025-04-03] MEDS ORDERED: Lactobacil 2-S.Thermo-Bifido 1 1 Cap PO SCH (21:00)
[2025-04-04 03:52] VITALS: BP 118/86
--- NOTE | 2025-04-04 06:46 | NUR ---
SHIFT SUMMARY PT MEDICATED FOR PAIN X1 WITH OXYCODONE PER EMAR. UP INDEPENDENTLY IN ROOM. IV ANTIBIOTICS CONTINUE PER ORDER. PT SLEPT INTERMITTENTLY DURING THE NIGHT.
[2025-04-04 08:18] VITALS: BP 115/80
[2025-04-04 13:22] VITALS: BP 122/85
[2025-04-04 15:40] VITALS: BP 103/58
--- NOTE | 2025-04-04 18:54 | NUR ---
SHIFT SUMMARY PT A&OX4. PT ADMITTED DUE TO PYELONEPHRITIS, HX OF ANXIETY. PT INDEPENDENT IN ROOM. PT REPORTS NO SOB AND NO CHEST PAIN. PT REPORTS STOMACH AND BACK PAIN. PAIN MANAGED BY HEAT AND PER EMAR. PT REPORTS NAUSEA, SCOPOLOMINE PATCH REMAINS BEHIND PT R EAR. PT TODAY REPORTED IV BEING TENDER. PT REQUESTED NEW IV. ANOTHER RN ON FLOOR STARTED NEW IV ON LFA. ATARAX GIVEN PRIOR TO IV START. DR. GORDON ORDERED PROPRANOLOL FOR TREMORS, THIS RN ADMINISTERED DOSE. PT VSS. PT GETTING IV ANTIBIOTICS. PT IN BED, BED IN LOWEST POSITION, LOCKED, CALL LIGHT IN REACH,
[2025-04-04 19:38] VITALS: BP 115/71
[2025-04-05] MEDS ORDERED: NS 250 ML IV PRN (04:05)
[2025-04-05 05:05] VITALS: BP 100/59
[2025-04-05 05:40] LABS: BASOPHILS ABSOLUTE AUTO 0.03 K/mm3 (0.00-0.23); BASOPHILS PERCENT AUTO 1 % (0-2); EOSINOPHILS ABSOLUTE AUTO 0.14 K/mm3 (0.00-0.68); EOSINOPHILS PERCENT AUTO 2 % (0-6); Hematocrit 37.9 % (33.0-51.0); Hemoglobin 12.3 g/dL (11.5-16.0); IMMATURE GRAN ABSOLUTE AUTO 0.02 K/mm3 (0.00-0.10); IMMATURE GRAN PERCENT AUTO 0 % (0-1); LYMPHOCYTES ABSOLUTE AUTO 2.63 K/mm3 (0.84-5.20); LYMPHOCYTES PERCENT AUTO 45 % (21-46); MONOCYTES ABSOLUTE AUTO 0.49 K/mm3 (0.16-1.47); MONOCYTES PERCENT AUTO 8 % (4-13); Mean Corpuscular HGB Conc 32.5 g/dL (31.5-36.5); Mean Corpuscular Volume 91 fL (80-100); NEUTROPHILS ABSOLUTE AUTO 2.55 K/mm3 (1.96-9.15); NEUTROPHILS PERCENT AUTO 44 % (41-73); NRBC ABSOLUTE 0.00 K/mm3 (0.00-0.02); NRBC Auto 0.0 /100 WBC (0.0-0.2); Platelet Count 230 K/mm3 (150-400); RDW Coefficient Variation 12.5 % (11.7-14.2); RDW Standard Deviation 41.0 fL (35.1-46.3)
[2025-04-05 06:06] LABS: Alanine Aminotransfer (ALT/SGP 49.0 U/L (12-78); Albumin, Blood 3.3 g/dL (3.4-5.0); Albumin/Globulin Ratio 1.1 (0.8-1.8); Anion Gap 7.0 mmol/L (3-11); Aspartate Aminotrans (AST/SGOT 27.0 U/L (12-37); Bilirubin, Total 0.2 mg/dL (0.1-1.0); Blood Urea Nitrogen 11.0 mg/dL (8-24); CO2, Blood 27.0 mmol/L (21-32); Calcium, Blood 8.8 mg/dL (8.5-10.1); Chloride, Blood 107.0 mmol/L (98-108); Creatinine, Blood 0.74 mg/dL (0.40-1.00); Globulin, Blood 3.1 g/dL (2.2-4.0); Glucose, Blood 90.0 mg/dL (70-99); Potassium, Blood 3.9 mmol/L (3.5-5.5); Sodium, Blood 137.0 mmol/L (136-145); Total Protein, Blood 6.4 g/dL (6.4-8.2)
--- NOTE | 2025-04-05 06:39 | NUR ---
SHIFT SUMMARY PT UP INDEPENDENTLY IN ROOM. MEDICATED FOR ABDOMINAL PAIN THAT RADIATES TO BACK WITH OXYCODONE PER EMAR. MEDICATED FOR NAUSEA X1 PER EMAR. IV ANTIBIOTICS CONTNUE PER ORDER. PT ANTICIPATING D/C TODAY. FRIEND AT BEDSIDE DURING THE NIGHT. SLEPT INTERMITTENTLY.
[2025-04-05 07:46] VITALS: BP 119/71
[2025-04-05] MEDS ORDERED: CEFP200 PO (08:24)
[2025-04-05] MEDS ORDERED: MELATONIN5 M1 PO (08:24)
[2025-04-05] MEDS ORDERED: OXAYDO5 M3 PO (08:25)
[2025-04-05] MEDS ORDERED: ONDA4ODT MM (08:25)
[2025-04-05] MEDS ORDERED: Propranolol HCl60 MG PO (08:26)
[2025-04-05] MEDS ORDERED: VISBIOME 112.51 EACH PO (08:41)
[2025-04-05] MEDS ORDERED: TRANSDERM-SCOP1 EA13 TD (08:41)
--- NOTE | 2025-04-05 13:07 | NUR ---
NOTE PT REQUESTED DR. LAWSON FOR WORK. THIS RN NOTIFIED DR. GORDON, DR. GORDON DROPPED OFF HARD SCRIPT, COPY IN CHART. HARD SCRIPT IN CHART. PT REQUESTED SCOLPOLOMINE PATCH, REPORTED "IT FELL OFF", THIS RN NOTIFIED DR. GORDON. DR. GORDON REPORTED "PT CAN HAVE ANOTHER PATCH, WILL COME DROP OFF NOTE FOR WORK."
--- NOTE | 2025-04-05 14:48 | NUR ---
DISCHARGE NOTE PT A&OX4. PT ADMITTED DUE TO PYELONEPHRITIS. HX OF ANXIETY. PT INDEPENDENT IN ROOM. PT VSS. PT REPORTS NO SOB AND NO CHEST PAIN. PT GOT NOON ANTIBIOTIC. PT REPORTS PAIN AT STOMACH AND BACK MANAGED BY HEAT AND PER EMAR. PT REPORTS NAUSEA. NEW SCOLPOLOMINE PATCH APPLIED BEHIND R EAR. ORDERED DISCHARGE. THIS RN COMPLETED DISCHARGE. THIS RN WENT OVER DISCHARGE INSTRUCTIONS AND MEDS. UNDERGROUND BOLTING MACHINE OPERATOR FAXED MEDS TO PHARMACY, PT PREFERRED [facility] REPORTED WILL GERIATRIC PHYSICIAN MEDS TOMORROW. TWO HARD SCRIPT SENT WITH PT. PT LEFT W ALL PERSONAL BELONGINGS. THIS RN ESCORTED PT TO PT ENTERANCE. IV D/C.
== END 2025-04-05 15:55 | disposition home or self-care (01) | DRG 690 ==
LOC: MEDS 13:16
PROVIDERS: Internal Medicine; ADMIT Family Medicine
DX: N12 Tubulo-interstitial nephritis, not specified as acute or chronic (principal); E87.1 Hypo-osmolality and hyponatremia; Z16.35 Resistance to multiple antimicrobial drugs; F41.9 Anxiety disorder, unspecified; K21.9 Gastro-esophageal reflux disease without esophagitis; E61.1 Iron deficiency; B95.7 Other staphylococcus as the cause of diseases classified elsewhere; G25.0 Essential tremor; Z23 Encounter for immunization; Z87.42 Personal history of other diseases of the female genital tract; Z88.8 Allergy status to other drugs, medicaments and biological substances; Z88.2 Allergy status to sulfonamides; Z79.899 Other long term (current) drug therapy; Z79.2 Long term (current) use of antibiotics
CPT/HCPCS: 36415; 80053; 80202; 81001; 81003; 81025; 82565; 85025; 87086; A9270; J0696; J1650; J2270; J2405; J2765; J3373; J7040; J7050